=== PATIENT | female | born 1985 | race Caucasian/White ===

== ENCOUNTER 2016-09-01 22:41 | Emergency (ER) | payer MEDICAID ==
[~2016-09-01] VITALS: Ht 149.9 cm; Wt 89.4 kg
[~2016-09-01 22:41] MED LIST: PHE25
[2016-09-01 22:50] VITALS: BP 114/63; PULSE 101; RESP 18; TEMP 98.3; O2SAT 97
[2016-09-02 00:02] VITALS: BP 115/68; PULSE 90; RESP 18; TEMP 98.1; O2SAT 98
== END 2016-09-02 00:02 | disposition home or self-care (01) ==
LOC: SED 22:41
DX: O9A.213 Injury, poisoning and certain other consequences of external causes complicating pregnancy, third trimester (principal); S56.114A Strain of flexor muscle, fascia and tendon of left middle finger at forearm level, initial encounter; Z3A.33 33 weeks gestation of pregnancy; Z88.1 Allergy status to other antibiotic agents; W18.00XA Striking against unspecified object with subsequent fall, initial encounter; Y93.89 Activity, other specified; Y92.89 Other specified places as the place of occurrence of the external cause; Y99.8 Other external cause status
CPT/HCPCS: 73140-TC; 99284

== ENCOUNTER 2017-04-12 01:39 | Emergency (ER) | payer MEDICAID ==
[~2017-04-12] VITALS: Ht 152.4 cm; Wt 94.3 kg
[2017-04-12 01:45] VITALS: BP_SYST 101
[2017-04-12] MEDS ORDERED: methylPREDNISolone SOD SUCC/PF 62.5 MG/ML VIAL IM ONE (02:00)
[2017-04-12] MEDS ORDERED: KETOROLAC TROMETHAMINE 30 MG VIAL IM ONE (02:00)
[2017-04-12] MEDS ORDERED: ALBUTEROL SULFATE 0.083% 2.5 MG/3 ML VIAL.NEB INH ONE (02:00)
[2017-04-12 02:58] VITALS: BP_SYST 105
[2017-04-12] MEDS ORDERED: AZITHROMYCIN 250 MG TABLET PO ONE (03:00)
== END 2017-04-12 02:50 | disposition home or self-care (01) ==
LOC: SED 01:39
DX: J32.9 Chronic sinusitis, unspecified (principal); J06.9 Acute upper respiratory infection, unspecified; J40 Bronchitis, not specified as acute or chronic; Z88.1 Allergy status to other antibiotic agents
CPT/HCPCS: 71010; 81025; 94640; 96372; 99284; J1885; J2930; Q0144

== ENCOUNTER 2017-04-20 13:33 | Emergency (ER) | payer MEDICAID ==
[~2017-04-20] VITALS: Ht 149.9 cm; Wt 95.3 kg
[2017-04-20 13:47] VITALS: BP_SYST 112
--- NOTE | 2017-04-20 13:55 | NUR ---
Pt placed to ER bed 04, to gown, report received from ALEX Stern. Pt c/o H/A with dry and non-productive cough. Respirations even and non-labored, BBS clear.
--- NOTE | 2017-04-20 14:15 | NUR ---
Dr. Melton at bedside to assess pt.
--- NOTE | 2017-04-20 15:00 | NUR ---
No needs verbalized at this time.
[2017-04-20] MEDS ORDERED: HYDROcodone/ACETAMIN 5-325 MG TAB (NORCO/ VICODIN) PO ONE (16:00)
--- NOTE | 2017-04-20 16:10 | NUR ---
Repeat temp 101.6. Dr. Melton made aware and he cleared pt to go home.
[2017-04-20 16:20] VITALS: BP_SYST 118
--- NOTE | 2017-04-20 16:20 | NUR ---
Patient given written and verbal discharge instructions and verbalizes understanding. ER MD discussed with patient the results and treatment provided. Patient in stable condition. ID arm band removed. Rx of [place] and Albuterol given. Patient educated on pain management and to follow up with PMD. Pain Scale 2/10. Opportunity for questions provided and answered.
== END 2017-04-20 16:20 | disposition home or self-care (01) ==
LOC: SED 13:33
DX: R51 Headache (principal); R04.0 Epistaxis; R05 Cough; Z88.1 Allergy status to other antibiotic agents
CPT/HCPCS: 99283

== ENCOUNTER 2018-07-28 19:26 | Emergency (ER) | payer MEDICAID ==
[~2018-07-28] VITALS: Ht 149.9 cm; Wt 95.7 kg
[2018-07-28 19:33] VITALS: BP_SYST 134
--- NOTE | 2018-07-28 19:40 | NUR ---
Patient to ER bed 07 to gown for evaluation. Side rails up. Report given to Luba JOHNSON.
--- NOTE | 2018-07-28 19:41 | NUR ---
Pt is AAOX4 and ambulatory. Pt states that about two days ago she had "a bug fly into her eye". Since then pt has had a feeling that something is still stuck in her eye. Slight redness is noted to the right eye at this time. Pt denies any diziness, n/v, or pain. Will continue to monitor.
--- NOTE | 2018-07-28 19:43 | NUR ---
Celso [employer] bedside for Pt eval
[2018-07-28] MEDS ORDERED: DIPH-TET-PERTUS Vaccine 0.5 ML VIAL (ADACEL) I.M. ONE (20:00)
[2018-07-28 20:54] VITALS: BP_SYST 132
--- NOTE | 2018-07-28 20:54 | NUR ---
Patient given written and verbal discharge instructions and verbalizes understanding. ER MD discussed with patient the results and treatment provided. Patient in stable condition. ID arm band removed. Rx of erythromycin and norco given. Patient educated on pain management and to follow up with PMD. Pain Scale 0/10. Opportunity for questions provided and answered. Medication side effect fact sheet provided.
== END 2018-07-28 20:54 | disposition home or self-care (01) ==
LOC: SED 19:26
DX: S05.01XA Injury of conjunctiva and corneal abrasion without foreign body, right eye, initial encounter (principal); R03.0 Elevated blood-pressure reading, without diagnosis of hypertension; Z88.1 Allergy status to other antibiotic agents; X58.XXXA Exposure to other specified factors, initial encounter; Y93.89 Activity, other specified; Y92.89 Other specified places as the place of occurrence of the external cause; Y99.8 Other external cause status
CPT/HCPCS: 90715; 99283

== ENCOUNTER 2020-07-06 21:38 | Emergency (ER) | payer MEDICAID ==
[~2020-07-06] VITALS: Ht 149.9 cm; Wt 88.5 kg
[2020-07-06 21:43] VITALS: BP_SYST 122
--- NOTE | 2020-07-06 21:43 | NUR ---
Patient to ER bed 07 to gown for evaluation. Side rails up.
--- NOTE | 2020-07-06 21:44 | NUR ---
Pt brought by self, A&Ox4, pt presents to ER with R middle finger pain, states nail went through R middle finger and sent by PCP for tetanus injection, pt afebrile, skin pink and warm, afebrile.
--- NOTE | 2020-07-06 21:45 | NUR ---
Dr Strange evaluating patient at bedside
[2020-07-06] MEDS ORDERED: CEPH250C PO (21:52)
[2020-07-06] MEDS ORDERED: ACET325T PO (21:53)
[2020-07-06] MEDS ORDERED: IBUP-1968 PO (21:53)
--- NOTE | 2020-07-06 21:55 | NUR ---
Portable X Ray bedside, well tolerated
[2020-07-06] MEDS ORDERED: DIPH-TET-PERTUS Vaccine 0.5 ML VIAL (ADACEL) I.M. ONE (22:00)
[2020-07-06 22:05] VITALS: BP_SYST 122
--- NOTE | 2020-07-06 22:05 | NUR ---
Patient given written and verbal discharge instructions and verbalizes understanding. ER MD discussed with patient the results and treatment provided. Patient in stable condition. ID arm band removed. Rx of Keflex and Tylenol given. Patient educated on pain management and to follow up with PMD. Pain Scale 0/10 Opportunity for questions provided and answered. Medication side effect fact sheet provided.
== END 2020-07-06 22:05 | disposition home or self-care (01) ==
LOC: SED 21:38
DX: S61.232A Puncture wound without foreign body of right middle finger without damage to nail, initial encounter (principal); Z88.1 Allergy status to other antibiotic agents; Z79.899 Other long term (current) drug therapy; W22.8XXA Striking against or struck by other objects, initial encounter; Y93.89 Activity, other specified; Y92.89 Other specified places as the place of occurrence of the external cause; Y99.8 Other external cause status
CPT/HCPCS: 73140-TC; 99283

== ENCOUNTER 2021-02-19 19:21 | Emergency (ER) | payer MEDICAID ==
[~2021-02-19] VITALS: Ht 149.9 cm; Wt 102.5 kg
[~2021-02-19 19:21] MED LIST changes: +ACET325T PO; +CEPH250C PO; +IBUP-1968 PO; -PHE25
[2021-02-19 19:26] VITALS: BP_SYST 160
--- NOTE | 2021-02-19 19:26 | NUR ---
Patient to ER bed 7 to gown for evaluation. Side rails up.
[2021-02-19] MEDS ORDERED: ALBUTEROL SULFATE 0.083% 2.5 MG/3 ML VIAL.NEB INH ONE ×2 (19:30→19:38)
[2021-02-19] MEDS ORDERED: IPRATROPIUM BROM 0.5 MG/2.5 ML VIAL.NEB (ATROVENT) INH ONE ×2 (19:30→19:38)
[2021-02-19] MEDS ORDERED: predniSONE 20 MG TABLET PO ONE (19:30)
--- NOTE | 2021-02-19 19:31 | NUR ---
pt arrived to er with sob since last night. she was cleaning up her attic and stated getting sob at 2300 yesterday. pt is having trouble cathcing her breath now. pt does have hx of asthma and has tried her albuteral a few times with no success. her last asthma attck was 2018. pt sattes she is hvaing chest pain now from breathing heavy. 7/10 pain.
--- NOTE | 2021-02-19 19:33 | NUR ---
ER at bedside examining patient.
[2021-02-19] MEDS ORDERED: NACL 0.9% 1,000 ML IV ONE (20:30)
[2021-02-19] MEDS ORDERED: MAGNESIUM SULFATE 50 ML IV ONE (20:30)
[2021-02-19 20:42] LABS: BASOPHILS # (AUTO) 0.1 K/uL (0.0-0.2); BASOPHILS % (AUTO) 0.5 % (0.0-2.0); EOSINOPHILS % (AUTO) 8.7 % (0.0-4.0); HEMATOCRIT 44.9 % (36-48); LYMPHOCYTES # (AUTO) 2.6 K/uL (1.0-5.5); LYMPHOCYTES % (AUTO) 22.9 % (20.5-51.5); MEAN CORPUSCULAR HEMOGLOBIN 29 pg (27-31); MEAN CORPUSCULAR HGB CONC 34 % (32-36); MEAN CORPUSCULAR VOLUME 86 fL (79.0-98.0); MONOCYTES # (AUTO) 0.8 K/uL (0.0-1.0); MONOCYTES % (AUTO) 7.4 % (1.7-9.3); NEUTROPHILS # (AUTO) 6.8 K/uL (1.8-7.7); NEUTROPHILS % (AUTO) 60.5 % (40.0-70.0); PLATELET COUNT (AUTO) 295 K/uL (130-430); RED BLOOD CELL COUNT(AUTO) 5.21 MIL/uL (4.2-6.2); RED CELL DISTRIBUTION WIDTH 13.7 % (9.0-15.0); WHITE BLOOD COUNT (AUTO) 11.2 K/uL (4.8-10.8)
--- NOTE | 2021-02-19 20:45 | NUR ---
# 20 gauge angiocath placed to LAC. Use of asceptic technique. Opsite placed over site. Blood return noted. Blood for lab drawn from site. Flushed with 10 cc of normal saline. No evidence of infiltration noted. Patient tolerated well.
[2021-02-19 20:53] LABS: CALCIUM 9.2 mg/dL (8.4-11.0); CREATININE 0.91 mg/dL (0.55-1.30); POTASSIUM 3.5 mmol/L (3.5-5.1)
[2021-02-19 20:58] LABS: ALBUMIN 3.8 g/dL (3.4-4.8); TOTAL BILIRUBIN 0.6 mg/dL (0.0-1.0)
[2021-02-19] MEDS ORDERED: PRED20TA PO (21:21)
[2021-02-19 21:35] VITALS: BP_SYST 160
--- NOTE | 2021-02-19 21:40 | NUR ---
Patient given written and verbal discharge instructions and verbalizes understanding. ER MD discussed with patient the results and treatment provided. Patient in stable condition. ID arm band removed. IV catheter removed intact and dressing applied, no active bleeding. Rx of PREDNISONE given. Patient educated on pain management and to follow up with PMD. Pain Scale . Opportunity for questions provided and answered. Medication side effect fact sheet provided.
== END 2021-02-19 21:40 | disposition home or self-care (01) ==
LOC: SED 19:21
DX: J45.901 Unspecified asthma with (acute) exacerbation (principal); Z88.1 Allergy status to other antibiotic agents; Z79.899 Other long term (current) drug therapy
CPT/HCPCS: 36415; 71045; 80053; 85025; 94640; 96365; 96366; 99284; J3475; J7512; J7613

== ENCOUNTER 2022-03-09 01:22 | Emergency (ER) | payer MEDICAID ==
[~2022-03-09] VITALS: Ht 149.9 cm; Wt 99.8 kg
[~2022-03-09 01:22] MED LIST changes: +PRED20TA PO
[2022-03-09 01:30] VITALS: BP_SYST 118
--- NOTE | 2022-03-09 01:36 | NUR ---
Patient to ER bed 8 to gown for evaluation. Side rails up. Report given to Ruthy JOHNSON.
--- NOTE | 2022-03-09 01:47 | NUR ---
ER at bedside examining patient.
[2022-03-09] MEDS ORDERED: predniSONE 20 MG TABLET PO ONE (02:00)
[2022-03-09] MEDS ORDERED: ALBUTEROL SULFATE 0.083% 2.5 MG/3 ML VIAL.NEB INH ONE (02:00)
[2022-03-09] MEDS ORDERED: IPRATROPIUM BROM 0.5 MG/2.5 ML VIAL.NEB (ATROVENT) INH ONE (02:00)
[2022-03-09] MEDS ORDERED: PRED20TA PO (02:09)
[2022-03-09] MEDS ORDERED: IBUP-1971 PO (02:10)
[2022-03-09 02:22] VITALS: BP_SYST 118
--- NOTE | 2022-03-09 02:34 | NUR ---
Patient given written and verbal discharge instructions and verbalizes understanding. ER MD discussed with patient the results and treatment provided. Patient in stable condition. ID arm band removed. Rx of MOTRIN & PREDNISONE given. Patient educated on pain management and to follow up with PMD. Opportunity for questions provided and answered. Medication side effect fact sheet provided.
== END 2022-03-09 02:34 | disposition home or self-care (01) ==
LOC: SED 01:22
DX: R06.02 Shortness of breath (principal); R05.9 Cough, unspecified; R50.9 Fever, unspecified; J45.909 Unspecified asthma, uncomplicated; Z88.1 Allergy status to other antibiotic agents; Z79.899 Other long term (current) drug therapy
CPT/HCPCS: 94640; 94760; 99283; J7512; J7613